=== PATIENT | female | born 1995 | race Caucasian/White ===

== ENCOUNTER 2023-10-16 01:27 | Emergency (ER) | payer BC, OTHER | END 2023-10-16 03:52 | disposition home or self-care (01) | LOC: ERS 01:27 | DX: Z04.1 Encounter for examination and observation following transport accident (principal); F10.129 Alcohol abuse with intoxication, unspecified; V40.0XXA Car driver injured in collision with pedestrian or animal in nontraffic accident, initial encounter | CPT/HCPCS: 99284 ==